=== PATIENT | female | born 1955 | race Caucasian/White ===

== ENCOUNTER 2024-09-24 12:22 | Emergency (ER) | payer MEDICARE, OTHER ==
[2024-09-24] MEDS ORDERED: Dexamethasone 10 MG/ML VIAL ONE (13:12)
[2024-09-24] MEDS ORDERED: diphenhydrAMINE 25 MG CAP ONE ×2 (13:13→13:21)
[2024-09-24] MEDS ORDERED: valACYclovir 500 MG TAB ONE ×2 (13:13→13:22)
== END 2024-09-24 13:32 | disposition home or self-care (01) ==
LOC: BURERS 12:22
DX: L25.9 Unspecified contact dermatitis, unspecified cause (principal); I10 Essential (primary) hypertension
CPT/HCPCS: 96372; 99282; J1100